=== PATIENT | female | born 1995 | race Caucasian/White ===

== ENCOUNTER 2017-10-11 08:05 | Day surgery (SDC) | payer MEDICAID, SELFPAY ==
--- NOTE | 2017-10-10 14:00 | PCM.HP.BLA ---
History and Physical Date of Admission: 10/11/17 Surgical History and Physical Holley Acosta, a 21 year old female 2 0 0 0 2, presents for [facility] with Filsche clips and [facility] on October 11 at [facility] at 9:30. -- Desires Permanent Sterilization -- She has considered this form of BC for quite some time. MEDICATIONS HISTORY: ALLERGIES: No Known Drug Allergies Infections - Chicken pox and as child Illnesses - none Accidents - no injuries of consequence Hospitalizations - Childbirth Review of Systems: GENERAL - Denies fever, or chills SKIN - Denies skin changes EYES - Denies visual changes EARS - Denies difficulty hearing NOSE - Denies nasal congestion or bleeding MOUTH - Denies sore throat or difficulty swallowing NECK - Denies pain or swelling RESPIRATORY - Denies shortness of breath or wheezing CARDIOVASCULAR - Denies palpitations or chest pain GASTROINTESTINAL - Denies nausea, vomiting, diarrhea, constipation GENITOURINARY - Denies dysuria, frequency of urination, urgency, or hesitancy MUSCULOSKELETAL - Denies joint or muscle pain NEUROLOGICAL - Denies localized numbness or weakness PSYCHIATRIC - Denies depression or anxiety ENDOCRINE - Denies heat or cold intolerance, weight loss or gain HEMATO-IMMUNOLOGIC - Denies excesive bleeding with cuts SOCIAL HISTORY: Alcohol Use - denies drinking Smoking - 1/2 pack/day--advised to quit Diet - no special diet Lifestyle - moderate stress lifestyle and single Exercise - walking Seat Belt Use - most of the time Employer - [employer] Job Description - House Keeping/Breakfast Illicit Drug Use - admits to weekly marijuanna use while Sexual Activity - [employer] Residence - with parents and son Spouse-Sig Other Name - not involved Children Name(s) - Fatoumata Forrest(17) Control - condoms FAMILY HISTORY: MENSTRUAL HISTORY: LMP Known?- DefiniteAmount/Duration - 5-6 DAYS, Regularity - Irregular, LMP - 09/02/17, Age Onset Menarche - 10 PAST PREGNANCIES: Total Pregnancies - 2; Full Term Pregnancies - 2; Premature - 0; Abortions, Induced - 0; Abortions, Spontaneous - 0; Ectopics - 0; Multiple Births - 0; Living Children - 2 SURGICAL HISTORY: 1. none ; - PHYSICAL EXAM BP- 110/66 Sitting, Left arm, regular cuff Weight- 134.28522 lbs Height- 64 inch BMI:23.14 CONSTITUTIONAL - NAD, well nourished, and well developed SKIN - No rash, lesions, or ulcers HEENT - Normocephalic, PERRLA, EOMI NECK - No nodes, no nuchal rigidity and thyroid normal size and texture LYMPH NODES - Palpation of lymph nodes in neck and groins within normal limits LUNGS - CTA x2 without wheezes, crackles or rales CARDIAC - Regular rate and rhythm without rubs, murmurs, or gallops ABDOMEN - Without hepatosplenomegaly, distention, masses, rebound, or guarding; normal bowel sounds; no hernias EXTREMITIES - No edema or calf tenderness NEUROLOGICAL - Cranial nerves II-XII grossly intact PSYCHIATRIC - A and O to time, place, person, mood and affect Urethra/Urethral Meatus - non-tender Bladder - non-tender Vagina - vaginal hardin are pink and moist without loss of rugae and no evidence of atropy Cervix - without cervical motion tenderness and has normal size and features without evident lesions Uterus - multiparous size 6 cm & wt 75-125 g Adnexa - clear without massess or tenderness Pap - deferred as not yet due ASSESSMENT/PLAN: 1. Sterilization Status Discussed options including ESSURE, LST. Declines non-permanent options. Wants to proceed with LST with Filsche clips. Discussed RBAs including the permanent nature of the procedure, the failure rate of 1-2 percent and the availability of non-permanent BC options. All questions answered.
[2017-10-11 08:33] VITALS: BP 109/67; PULSE 78; RESP 14; TEMP 36.3; O2SAT 99; BMI 22.4
[2017-10-11 08:39] LABS: Internal QC Validated? YES +Cl - CLEAR BKGD; Pregnancy, Urine Negative Negative
--- NOTE | 2017-10-11 09:39 | OP.PCM_ITS ---
Operative Report Date of Procedure: 10/11/17 Surgeon: Clayton Plasencia MD, FACOG Anesthesia: Young Jaquez CRNA Type of Anesthesia: General Endotracheal Pre-Op Diagnosis: Desires Permanent Sterilization Postoperative Diagnosis: Desires Permanent sterilization; Severe Endometriosis Procedure: Bilateral Tubal Occlusion With Filshie Clips Findings: 6 cm uterus with normal appearing fallopian tubes and ovaries; endometriosis implants in cul-de-sac, over left ureter, over left rectosigmoid. Indications: This is a 21 year old patient who has the above diagnosis. She has considered sterilization for quite some time. She is aware of the permanent nature of the procedure, the failure rate of 1-2%, and the availability of other nonpermanent control options. All questions were answered to consider the patient well-informed. Procedure: The patient was taken to the operating room where after induction of general anesthesia, she was placed in the dorsolithotomy position and prepped and draped in the usual sterile fashion. The bladder was drained of approximately 50 cc of clear yellow urine with a catheter. Attention was turned toward the laparoscopic portion of the procedure. Approximately 15 cc of half percent ropivacaine was injected subumbilically and suprapubically. A 5 mm bladeless trocar was placed subumbilically and intraperitoneal placement confirmed. After CO2 insufflation was complete, a 7/ 8 mm bladeless trocar was introduced suprapubically. The above findings were noted. Each fallopian tube was identified to its fimbriated end. Filshie clips were placed approximately 1-2 cm from the uterine fundus on each fallopian tube. The peritoneal cavity and upper abdomen were examined and noted to be normal except as noted above. Photographs were taken. Laparoscopic instruments with as much CO2 gas as possible were removed and incisions were closed with interrupted 4-0 Monocryl suture. Steri-Strips placed across the incision. Vaginal instruments were removed. Patient tolerated procedure well was taken to recovery room in satisfactory condition sponge instrument and needle counts were all reportedly correct. Estimated blood loss for the case was minimal. Specimens to pathology was bilateral tubes
--- NOTE | 2017-10-11 09:40 | DCINST_ITS ---
Discharge Diet: No Restrictions - Increase fluid intake for the next 48 hours. Discharge Activity: Return to Normal Activity, May Drive - when you are no longer taking pain/narcotic medicines., May Shower, May Take a Tub Bath Additional Activity Instructions:: Ambulate often the next week after surgery. Nothing in the vagina for 5 days. Call your doctor if your incision/area has: Continuous Slow Oozing, Sudden Increased Bleeding, Increased Pain/ Swelling, Increased Redness, Foul Smelling Discharge Call your doctor if you observe: Fever of 101 or Higher, Inability to urinate, Inability to have a bowel movement, Using more than one pad per hour Allergies/Adverse Reactions: Allergies No Known Allergies Allergy (Verified 10/07/17 14:48) Medications to take at Discharge Vits [Prenatabs FA] 1 tablet PO BID 01/13/17 Hydrocodone/Acetaminophen [[place] 5-325 Tablet] 1 ea PO Q4H PRN PRN 7 Days #10 tab 10/11/17 The following prescriptions were given: Hydrocodone/Acetaminophen [[place] 5-325 Tablet] 1 ea PO Q4H PRN PRN 7 Days #10 tab PRN Reason: Severe Pain () Primary Care Physician: Care Physician,No Primary [Primary Care Provider] - Please Follow Up With: Clayton Plasencia MD - [phone] When: 2-3 weeks
[2017-10-11] MEDS: Ropivacaine 0.5% 30 ML Vial (09:55)
[2017-10-11 10:37] VITALS: BP 109/67; BP 115/77; PULSE 68; RESP 16; TEMP 36.2; O2SAT 97
[2017-10-11 10:45] VITALS: BP 109/67; BP 116/77; PULSE 62; RESP 16; O2SAT 98
[2017-10-11 11:00] VITALS: BP 106/74; BP 109/67; PULSE 55; RESP 16; O2SAT 98
[2017-10-11 11:15] VITALS: BP 109/67; BP 114/80; PULSE 62; RESP 16; TEMP 36.4; O2SAT 97
[2017-10-11] MEDS: HYDROcodone Bitartrate/Apap 5/325 Tablet PO (11:34)
[2017-10-11 12:02] VITALS: BP 109/67
== END 2017-10-11 12:03 | disposition home or self-care (01) ==
LOC: SDC 08:06 → AC 08:08
PROVIDERS: Visit Provider Obstetrics & Gynecology
PROC: (CPT 58671; principal; 2017-10-11 09:10)
DX: Z30.2 Encounter for sterilization (principal); N80.3 Endometriosis of pelvic peritoneum; N80.0 Endometriosis of uterus; N80.5 Endometriosis of intestine; F17.200 Nicotine dependence, unspecified, uncomplicated
CPT/HCPCS: 58671; 81025; J7120